=== PATIENT | male | born 1980 | race Caucasian/White ===

== ENCOUNTER 2018-01-26 16:08 | Emergency (ER) | payer SELFPAY ==
[~2018-01-26] VITALS: Ht 175.3 cm; Wt 70.0 kg
[~2018-01-26 16:08] MED LIST: ALBU6.7H INH; HYDR-3580 PO; IBUP800T23 PO; PRED20 PO; Z.0.NO CURRENT MEDS; ZITH250T PO
[2018-01-26 17:03] VITALS: BP 152/79; PULSE 72; RESP 20; TEMP 98; O2SAT 99
--- NOTE | 2018-01-26 18:51 | PD ---
HPI Chief Complaint: Injury Time Seen by Provider: 18:17 Travel History International Travel<30 days: No Contact w/Intl Traveler<30days: No Traveled to known affect area: No History of Present Illness HPI 37-year-old male presents to the emergency room for evaluation of bilateral wrist pain for the past 4 days. 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 States it has progressively gotten worse. Pain is constant, worse with any range of motion. It is localized to bilateral dorsal forearms, right worse than left. No radiation. He has been taking [id number] medications without relief in symptoms. He has also been applying ice. He denies any paresthesias or loss of range of motion. Denies any chronic medical conditions or daily medications. States his urine has been normal in color. PFSH Past Medical History Diminished Hearing: No Gastrointestinal Disorders: Yes (HISTORY OF ESOPHAGEAL AND GASTRIC ULCERS) GERD: Yes Kidney Stones: Yes Ulcer: Yes Past Surgical History Genitourinary Surgery: Yes (CYSTOSCOPES FOR KIDNEY STONES X 2) Social History Alcohol Use: No (DENIES) Tobacco Use: Yes (1/2-1 PPD) Substance Use: No Allergies-Medications (Allergen,Severity, Reaction): Coded Allergies: povidone-iodine (Unverified Allergy, Severe, CHEMICAL NAVARRO FROM ANY TOPICAL BETADINE-IODINE, 01/26/18) soap (Verified Allergy, Severe, navarro, 01/26/18) Reported Meds & Prescriptions Reported Meds & Active Scripts Active Review of Systems Except as stated in HPI: all other systems reviewed are Neg Physical Exam Narrative GENERAL: Well-nourished, well-developed male in no acute distress. Afebrile. Ambulatory. SKIN: Focused skin assessment warm/dry. HEAD: Normocephalic. EYES: No scleral icterus. No injection or drainage. NECK: Supple, trachea midline. No JVD or lymphadenopathy. CARDIOVASCULAR: Regular rate and rhythm without murmurs, gallops, or rubs. RESPIRATORY: Breath sounds equal bilaterally. No accessory muscle use. MUSCULOSKELETAL: No cyanosis. 2+ radial pulses are equal bilaterally. Radial, ulnar, and median nerves are intact bilaterally. Patient has full range of motion of bilateral upper extremities. Strength 5/5 and intact bilaterally. He does have tenderness to palpation of the bilateral, lateral, dorsal wrists. There is mild crepitus under the skin without wound. Data Data Last Documented VS Vital Signs Date Time Temp Pulse Resp B/P (MAP) Pulse Ox O2 Delivery O2 Flow Rate FiO2 01/26/18 17:03 98.0 72 20 152/79 (103) 99 Orders Orders Splint Or Brace Apply/Monitor (01/26/18 18:23) Splint Or Brace Apply/Monitor (01/26/18 18:23) Cockup Hand Splint (01/26/18 ) Cockup Hand Splint (01/26/18 ) MDM Medical Decision Making Medical Screen Exam Complete: Yes Emergency Medical Condition: Yes Medical Record Reviewed: Yes Differential Diagnosis Rhabdomyolysis, tendinitis, muscle spasm, muscle strain Narrative Course 37-year-old male presents to the emergency room for evaluation of bilateral pain for the past 4 days. Symptoms started after lifting 100 cinderblocks. Denies any dark urine. Physical exam reveals 2+ radial pulses are equal bilaterally. Radial, ulnar, and median nerves are intact bilaterally. Patient has full range of motion of bilateral upper extremities. Strength 5/5 and intact bilaterally. He does have tenderness to palpation of the bilateral, lateral, dorsal wrists. There is mild crepitus under the skin without wound. Patient was offered lab for rhabdomyolysis but declined stating that he feels like it is just muscle strain. He was reassured and told to drink plenty of fluids. Placed in bilateral wrist splints to allow for resting. Told to follow -up with primary care physician or return for worsening symptoms. He understands and agrees to plan. Diagnosis Primary Impression: Bilateral wrist pain Referrals: Primary Care Physician Additional Instructions: Rest and drink plenty of fluids. Splints as needed for pain. Take ibuprofen with food as directed, as needed for pain. Apply ice to the affected area for 20 minutes at a time, as needed for pain and swelling. Follow-up with a primary care physician. Return to the emergency room for worsening symptoms. Disposition: 01 DISCHARGE HOME Condition: Stable Saima Castaneda Jan 26, 2018 18:51
== END 2018-01-26 19:05 | disposition home or self-care (01) ==
LOC: NEPK 16:08
DX: M25.531 Pain in right wrist (principal); M25.532 Pain in left wrist; F17.200 Nicotine dependence, unspecified, uncomplicated
CPT/HCPCS: 99282; L3908

== ENCOUNTER 2018-03-28 15:15 | Observation (INO) ==
[2018-03-28] MEDS ORDERED: Sod Chloride 0.9% Inj 1,000 ML IV.SIG ONE ×2 (15:33)
[2018-03-28 16:02] LABS: Baso # (Auto) 0.1 th/mm3 (0.0-0.2); Baso % (Auto) 1.2 % (0.0-2.0); Eos # (Auto) 0.2 th/mm3 (0.0-0.4); Eos % (Auto) 2.9 % (0.0-4.0); Hematocrit 39.8 % (39.0-51.0); Hemoglobin 13.6 gm/dL (13.0-17.0); Lymph # (Auto) 2.5 th/mm3 (1.0-4.8); Lymph % (Auto) 33.8 % (9.0-44.0); Mean Corpuscular HGB Conc 34.1 % (32.0-36.0); Mean Corpuscular Hemoglobin 33.7 pg (27.0-34.0); Mean Corpuscular Volume 98.7 fL (80.0-100.0); Mono # (Auto) 0.8 th/mm3 (0.0-0.9); Mono % (Auto) 10.6 % (0.0-8.0); Neut # (Auto) 3.8 th/mm3 (1.8-7.7); Neut % (Auto) 51.5 % (16.0-70.0); Platelet Count 254 th/mm3 (150-450); Red Blood Count 4.03 mil/mm3 (4.50-5.90); Red Cell Distribution Width 12.9 % (11.6-17.2); White Blood Count 7.5 th/mm3 (4.0-11.0)
[2018-03-28 16:09] VITALS: BP 135/87; PULSE 57; RESP 18; TEMP 97.8
--- NOTE | 2018-03-28 16:17 | CT ---
EXAM DATE: 03/28/2018 4:03 PM EDT AGE/SEX: 37 years / Male INDICATIONS: Syncope today. CLINICAL DATA: This is the patient's initial encounter. Patient reports that signs and symptoms have been present for 1 day and indicates a pain score of 0/10. MEDICAL/SURGICAL HISTORY: Gastroesophageal reflux disease. None. RADIATION DOSE: 34.87 CTDI (mGy) COMPARISON: No prior exams available for comparison. TECHNIQUE: CT of the head without contrast. Using automated exposure control and adjustment of the mA and/or kV according to patient size, radiation dose was kept as low as reasonably achievable to ob tain optimal diagnostic quality images. DICOM format image data is available electronically for revi ew and comparison. FINDINGS: Cerebrum: The ventricles are normal for age. No evidence of midline shift, mass lesion, hemorrhage or acute infarction. No extraaxial fluid collections are seen. Posterior Fossa: The cerebellum and brainstem are intact. The 4th ventricle is midline. The cerebe llopontine angle is unremarkable. Extracranial: The visualized portion of the orbits is intact. Skull: The calvaria is intact. No evidence of skull fracture. CONCLUSION: 1. No acute intracranial abnormality. . Electronically signed by: Priyank Pak MD 03/28/2018 4:15 PM EDT
--- NOTE | 2018-03-28 16:24 | XR ---
EXAM DATE: 03/28/2018 4:14 PM EDT AGE/SEX: 37 years / Male INDICATIONS: Chest pain. CLINICAL DATA: This is the patient's initial encounter. Patient reports that signs and symptoms have been present for 1 day and indicates a pain score of 2/10. MEDICAL/SURGICAL HISTORY: None. None. COMPARISON: [facility], CHEST PA & LAT, 09/03/2012. . FINDINGS: A single AP view of the chest demonstrates the lungs to be symmetrically aerated without evidence of mass, infiltrate or effusion. The cardiomediastinal contours are unremarkable. Osseous structures a re intact. CONCLUSION: No active disease. Electronically signed by: Priyank Pak MD 03/28/2018 4:23 PM EDT
--- NOTE | 2018-03-28 16:30 | ED ---
HPI General Chief Complaint: Syncope Stated Complaint: medical Time Seen by Provider: 03/28/18 15:21 Source: patient Mode of arrival: EMS Limitations: no limitations History of Present Illness HPI narrative: 37-year-old male was witnessed to have syncopized by passersby. 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 Evidently the patient lost consciousness for 1 minute. He has no history of seizures. He has no past medical history. The patient smokes tobacco. He drinks occasionally. He denies any excessive alcohol consumption yesterday. No drug abuse. No similar prior episode. EMS reports the patient struggled with answering questions. Repetitive questioning noted in route to the ED. MD complaint: loss of consciousness and collapsed Duration of episode: 1 -: minutes(s) Description of event: post-event confusion Prodromal symptoms: none Witnessed: yes - by bystander Context: during exertion Injuries sustained associated with event: none Current symptoms: weakness Treatments prior to arrival: none Related Data Home Medications Medication Instructions Recorded Confirmed No Known Home Medications 03/28/18 03/28/18 Allergies Allergy/AdvReac Type Severity Reaction Status Date / Time povidone-iodine Allergy Severe CHEMICAL Unverified 01/26/18 17:06 NAVARRO FROM ANY TOPICAL BETADINE-IODINE Review of Systems ROS Unobtainable unobtainable due to mental status PMFSH Medical History Medical History GERD (gastroesophageal reflux disease) (Acute) Gastric ulcer (Acute) Kidney calculi (Acute) Family History Family History Other Family history non-contributory Social History Social History Substance History: Active Abuse Second Hand Smoke Exposure: Yes Smoking Status: Current every day smoker Tobacco Type: Cigarettes How Often Do You Have a Drink Containing Alcohol: 2 to 4 times a month Recent Travel in [facility] within the Last 8 Weeks: No Recent Out of Country Travel within the Last 8 Weeks: No Substance Abuse Detail Marijuana: Substance Use Status: Active Route Used Substance Abuse: Inhalation Last Used: on occasion Reason for Use: Feels Good Immunization History Tetanus Immunization: Unsure Hx Influenza Vaccine This Season: No Exam Narrative Exam Narrative: GENERAL: 37 yo M, WNWD, AOx3 SKIN: Focused skin assessment warm/dry. HEAD: Atraumatic. Normocephalic. EYES: Pupils equal and round. No scleral icterus. No injection or drainage. ENT: No nasal bleeding or discharge. Mucous membranes pink and moist. NECK: Trachea midline. No JVD. CARDIOVASCULAR: Regular rate and rhythm. No murmur appreciated. RESPIRATORY: No accessory muscle use. Clear to auscultation. Breath sounds equal bilaterally. GASTROINTESTINAL: Abdomen soft, non-tender, nondistended. Hepatic and splenic margins not palpable. MUSCULOSKELETAL: No obvious deformities. No clubbing. No cyanosis. No edema. NEUROLOGICAL: Patient is a and O 3. The cranial nerves III through XII are normal. Motor function is normal times all 4 extremities. The patient repeats the same questions. Patient repeats the same statement: "I don't know what happened. I think it was heat stroke." PSYCHIATRIC: Appropriate mood and affect; insight and judgment normal. Course Initial Documented Vital Signs Temperature 97.8 F 03/28/18 15:21 Pulse Rate 62 03/28/18 15:21 Respiratory Rate 18 03/28/18 15:21 Blood Pressure 135/87 03/28/18 15:21 Pulse Oximetry 98 03/28/18 15:21 Last Documented Vital Signs Temperature 97.8 F 03/28/18 15:26 Pulse Rate 57 L 03/28/18 15:26 Respiratory Rate 18 03/28/18 15:26 Blood Pressure 135/87 03/28/18 15:26 Pulse Oximetry 100 03/28/18 15:26 Medical Decision Making MDM Narrative Medical decision making narrative: Patient had a syncope event. Altered mental status ensued of unknown etiology potentially related to closed head injury. Patient reassessed at 4:40 PM. Mental status improved with no more repetitive questioning. The patient has had runs of bradycardia into the low 40s. The setting of a relative cardiac abnormality, bradycardia, with syncope and head injury admission is considered necessary. d/w Dr Ivan. 2L NS given here along with 40 meq potassium. Lab Data Lab results reviewed: Yes I reviewed the patient's lab results. Result diagrams: 03/28/18 15:47 03/28/18 15:47 Lab Results 03/28/18 03/28/18 Range/Units 15:47 15:47 WBC 7.5 (4.0-11.0) th/mm3 RBC 4.03 L (4.50-5.90) mil/mm3 Hgb 13.6 (13.0-17.0) gm/dL Hct 39.8 (39.0-51.0) % MCV 98.7 (80.0-100.0) fL MCH 33.7 (27.0-34.0) pg MCHC 34.1 (32.0-36.0) % RDW 12.9 (11.6-17.2) % Plt Count 254 (150-450) th/mm3 MPV 8.0 (7.0-11.0) fL Neut % (Auto) 51.5 (16.0-70.0) % Lymph % (Auto) 33.8 (9.0-44.0) % [place] % (Auto) 10.6 H (0.0-8.0) % Eos % (Auto) 2.9 (0.0-4.0) % Baso % (Auto) 1.2 (0.0-2.0) % Neut # (Auto) 3.8 (1.8-7.7) th/mm3 Lymph # (Auto) 2.5 (1.0-4.8) th/mm3 [place] # (Auto) 0.8 (0.0-0.9) th/mm3 Eos # (Auto) 0.2 (0.0-0.4) th/mm3 Baso # (Auto) 0.1 (0.0-0.2) th/mm3 WBC Differential . Differential Comment Auto diff final Sodium 143 (136-145) meq/L Potassium 3.0 L (3.5-5.1) meq/L Chloride 110 H (98-107) meq/L Carbon Dioxide 25.8 (21.0-32.0) meq/L Anion Gap 7 (5-15) meq/L BUN 10 (7-18) mg/dL Creatinine 0.89 (0.60-1.30) mg/dL Estimated GFR Greater than 89 (>89) mL/min Random Glucose 89 (74-106) mg/dL Calcium 8.3 L (8.5-10.1) mg/dL Magnesium 2.1 (1.5-2.5) mg/dL Lactate Dehydrogenase 157 (87-241) U/L Troponin I Less than 0.02 L (0.02-0.05) ng/mL Serum Alcohol Less than 3 (0-5) mg/dL Imaging Data Radiologist's impression: Chest X-Ray 03/28/18 15:33 CONCLUSION: No active disease. Head CT 03/28/18 15:33 CONCLUSION: 1. No acute intracranial abnormality. . ECG Data EKG Prior to Arrival: Yes Attestation: I personally reviewed and interpreted this ECG as follows: Interpretation: Sinus, rate 52, normal axis and intervals, no preexcitation morphology Discharge Plan Discharge Disposition Patient Disposition: 30 Still Patient Physicians Team ED Provider: Donavan Viveros Primary Care Provider: UNKNOWN, Attending Provider: Niles Ivan Status ED Status: Admitted Observation Patient
[2018-03-28 16:31] LABS: Anion Gap 7 meq/L (5-15); Blood Urea Nitrogen 10 mg/dL (7-18); Calcium 8.3 mg/dL (8.5-10.1); Carbon Dioxide 25.8 meq/L (21.0-32.0); Chloride 110 meq/L (98-107); Glomerular Filtration Rate Greater Than 89 mL/min (>89); Glucose,Random 89 mg/dL (74-106); Magnesium 2.1 mg/dL (1.5-2.5); Sodium 143 meq/L (136-145)
[2018-03-28 16:35] LABS: Lactate Dehydrogenase 157 U/L (87-241)
[2018-03-28] MEDS ORDERED: Bisacodyl 10 MG Supp RECTAL PRN (17:07)
[2018-03-28] MEDS ORDERED: Temazepam 15 MG Capsule PO PRN (17:07)
[2018-03-28] MEDS ORDERED: Acetaminophen 325 MG Tablet PO PRN (17:07)
[2018-03-28] MEDS ORDERED: Potassium Chloride Inj 20 MEQ in Sod Chloride 0.9% Inj 1,000 ML IV.CONT SCH (17:15)
[2018-03-28] MEDS ORDERED: Aluminum/Magnesium/Simethacone Susp 30 ML UDC PO PRN (17:36)
--- NOTE | 2018-03-28 17:49 | P.HP ---
History of Present Illness Primary Care Physician: UNKNOWN History of Present Illness: This is a 37-year-old male with a history of gastric ulcer. FH no sz. He was brought in because of syncope. 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 He passed out for a minute. When he woke up, he was struggling answering questions per EMS. On the way to the emergency room, he had repetitive questioning. No seizure activity, tongue biting and incontinence. Patient remembers having abdominal pain prior to passing out. States he was out under the sun for at least 2 hours. [place] he was dehydrated though he was drinking fluids but did not have anything to eat. In the emergency department, he received 2 L of fluid and 40 M EQ potassium for a potassium of 3. He was not hypoglycemic. Plan was to discharge the patient but was noted to be bradycardic in the 40s EKG tracing interpreted by me showing sinus bradycardia heart rate of 57. Patient has history of slow heart rate in the 60s. ER physician recommended observation because of syncope with bradycardia. All other systems reviewed negative Review of Systems All other systems reviewed negative except as stated in HPI PMFSH - History History Provided By: Patient - Medical History Medical History: Medical History (Last Updated 03/28/18 @ 17:42 by Niles Ivan MD) GERD (gastroesophageal reflux disease) Gastric ulcer Kidney calculi - Family History Family History: Family History (Last Updated 03/28/18 @ 17:43 by Niles Ivan MD) Other Family history non-contributory - Tobacco History Second Hand Smoke Exposure: Yes Tobacco Use In Past 30 Days: Yes Smoking Status: Current every day smoker Tobacco Type: Cigarettes - Alcohol History How Often Do You Have a Drink Containing Alcohol: 2 to 4 times a month - Substance Use History Substance History: Active Abuse - Substance Use Type Marijuana Status: Active Route Used: Inhalation Last Used: on occasion Reason for Use: Feels Good - Travel History Recent Travel in the [place] Within the Last 8 Weeks: No Recent Travel Out of the Country Within the Last 8 Weeks: No - Immunization History Tetanus Immunization: Unsure Hx Influenza Vaccine This Season: No Medications and Allergies Active Medications: Active Medications Acetaminophen (Tylenol) 650 mg PO Q4H PRN PRN Reason: Temp > 100.4 Al Hydrox/Mg Hydrox/Simethicone (Mag-Al Plus Susp Liq) 30 ml PO Q6H PRN PRN Reason: DYSPEPSIA OR HEARTBURN Al Hydroxide/Mg Hydroxide (Milk Of Magnesia Liq) 30 ml PO Q12H PRN PRN Reason: Mild Constipation Bisacodyl (Dulcolax Supp) 10 mg RECTAL DAILY PRN PRN Reason: SEVERE CONSITIPATION Famotidine (Pepcid) 20 mg PO BID KEITH Potassium Chloride 20 meq/ (Sodium Chloride) 1,010 mls @ 100 mls/hr IV.CONT .Q10H6M KEITH Lactulose (Lactulose Liq) 30 ml PO DAILY PRN PRN Reason: SEVERE CONSITIPATION Ondansetron HCl (Zofran Inj) 4 mg IV.PUSH Q6H PRN PRN Reason: NAUSEA OR VOMITING Senna/Docusate Sodium (Divya-Colace) 1 tab PO BID KEITH Sennosides (Senokot) 17.2 mg PO Q12H PRN PRN Reason: Moderate Constipation Allergies Allergy/AdvReac Type Severity Reaction Status Date / Time povidone-iodine Allergy Severe CHEMICAL Unverified 01/26/18 17:06 NAVARRO FROM ANY TOPICAL BETADINE-IODINE Home Medications Medication Instructions Recorded Confirmed Type No Known Home Medications 03/28/18 03/28/18 History Exam Vital signs: Vital Signs 03/28/18 15:21 03/28/18 15:26 Temperature 97.8 F 97.8 F Pulse Rate 62 57 L Respiratory Rate 18 18 Blood Pressure 135/87 135/87 Pulse Oximetry 98 100 Intake & Output 03/27/18 03/28/18 03/28/18 18:59 06:59 18:59 Weight 68.039 kg Narrative: GENERAL: Well-developed and well-nourished in no distress SKIN: Warm and dry. HEAD: Tender occiput. Normocephalic. EYES: Pupils equal and round. No scleral icterus. No injection or drainage. ENT: No nasal bleeding or discharge. Mucous membranes dry NECK: Trachea midline. No JVD. CARDIOVASCULAR: Regular rate and rhythm. RESPIRATORY: No accessory muscle use. Clear to auscultation. Breath sounds equal bilaterally. GASTROINTESTINAL: Abdomen soft, non-tender, nondistended. MUSCULOSKELETAL: Extremities without clubbing, cyanosis, or edema. No obvious deformities. NEUROLOGICAL: Awake and alert. No obvious cranial nerve deficits. Motor grossly within normal limits. Five out of 5 muscle strength in the arms and legs. Normal speech. PSYCHIATRIC: Appropriate mood and affect; insight and judgment normal. Results - Labs CBC & Chem 7: 03/28/18 15:47 03/28/18 15:47 Labs: Laboratory Results - last 24 hr 03/28/18 03/28/18 15:47 15:47 WBC 7.5 RBC 4.03 L Hgb 13.6 Hct 39.8 MCV 98.7 MCH 33.7 MCHC 34.1 RDW 12.9 Plt Count 254 MPV 8.0 Neut % (Auto) 51.5 Lymph % (Auto) 33.8 [place] % (Auto) 10.6 H Eos % (Auto) 2.9 Baso % (Auto) 1.2 Neut # (Auto) 3.8 Lymph # (Auto) 2.5 [place] # (Auto) 0.8 Eos # (Auto) 0.2 Baso # (Auto) 0.1 WBC Differential . Differential Comment Auto diff final Sodium 143 Potassium 3.0 L Chloride 110 H Carbon Dioxide 25.8 Anion Gap 7 BUN 10 Creatinine 0.89 Estimated GFR Greater than 89 Random Glucose 89 Calcium 8.3 L Magnesium 2.1 Lactate Dehydrogenase 157 Troponin I Less than 0.02 L Serum Alcohol Less than 3 - Imaging Impressions Chest X-Ray 03/28/18 15:33 CONCLUSION: No active disease. Head CT 03/28/18 15:33 CONCLUSION: 1. No acute intracranial abnormality. . Caprini VTE Risk Assessment Caprini VTE Risk Assessment: No/Low Risk (score <= 1) Caprini Risk Assessment Model: Point Value = 1 Point Value = 2 Point Value = 3 Point Value = 5 Age 41-60 Minor surgery BMI > 25 kg/m2 Swollen legs Varicose veins or History of unexplained or recurrent spontaneous Oral contraceptives or hormone replacement Sepsis (< 1 month) Serious lung disease, including pneumonia (< 1 month) Abnormal pulmonary function Acute myocardial infarction Congestive heart failure (< 1 month) History of inflammatory bowel disease Medical patient at bed rest Age 61-74 Arthroscopic surgery Major open surgery (> 45 min) Laparoscopic surgery (> 45 min) Malignancy Confined to bed (> 72 hours) Immobilizing plaster cast Central venous access Age >= 75 History of VTE Family history of VTE Factor V Leiden Prothrombin [id number] Lupus anticoagulant Anticardiolipin antibodies Elevated serum homocysteine Heparin-induced thrombocytopenia Other congenital or acquired thrombophilia Stroke (< 1 month) Elective arthroplasty Hip, pelvis, or leg fracture Acute spinal cord injury (< 1 month) Prophylaxis Regimen: Total Risk Factor Score Risk Level Prophylaxis Regimen 0-1 Low Early ambulation 2 Moderate Order ONE of the following: *Sequential Compression Device (SCD) *Heparin 5000 units SQ BID 3-4 Higher Order ONE of the following medications: *Heparin 5000 units SQ TID *Enoxaparin/Lovenox 40 mg SQ daily (WT < 150 kg, CrCl > 30 mL/min) *Enoxaparin/Lovenox 30 mg SQ daily (WT < 150 kg, CrCl > 10-29 mL/min) *Enoxaparin/Lovenox 30 mg SQ BID (WT < 150 kg, CrCl > 30 mL/min) AND/OR *Sequential Compression Device (SCD) 5 or more Highest Order ONE of the following medications: *Heparin 5000 units SQ TID (Preferred with Epidurals) *Enoxaparin/Lovenox 40 mg SQ daily (WT < 150 kg, CrCl > 30 mL/min) *Enoxaparin/Lovenox 30 mg SQ daily (WT < 150 kg, CrCl > 10-29 mL/min) *Enoxaparin/Lovenox 30 mg SQ BID (WT < 150 kg, CrCl > 30 mL/min) AND *Sequential Compression Device (SCD) Assessment and Plan - Plan This is a 37-year-old male with a history of gastric ulcer. He was brought in because of syncope. 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 He passed out for a minute. When he woke up, he was struggling answering questions per EMS. On the way to the emergency room, he had repetitive questioning. No seizure activity, tongue biting and incontinence. Patient remembers having abdominal pain prior to passing out. States he was out under the sun for at least 2 hours. [place] he was dehydrated though he was drinking fluids but did not have anything to eat. In the emergency department, was noted to be bradycardic in the 40s EKG showing sinus bradycardia heart rate of 57. Patient has history of slow heart rate in the 60s. Syncope likely secondary to heat stroke versus vasovagal. Patient also has sinus bradycardia. At this time, he is neurovascularly intact. Will hospitalize for further evaluation. Monitor on telemetry with serial EKG. Continue IV hydration and obtain orthostatic vital signs. Neuro checks seizure precautions. Follow-up urine drug screen Hypokalemia. Patient received 40 mg potassium supplementation. Repeat BMP and magnesium in the morning Abdominal pain prior to syncope. History of gastric ulcer. Start Pepcid with antacids. Check lipase. Trend cardiac enzymes Low risk for DVT Discharge Planning: home in am [employer] bur[employer]
--- NOTE | 2018-03-28 18:58 | P.AMA ---
AMA Note - AMA Note AMA Statement: Patient Jonatan Schilling has decided to leave the hospital against medical advice. This patient has the capacity to refuse care and understands the risks of leaving, including permanent disability and/or , and has had an opportunity to ask questions about his/her condition. The patient has been informed that he/she may return for care at any time, and follow up has been arranged/advised. - AMA Note Discharge Disposition: Left Against Medical Advice
[2018-03-28] MEDS ORDERED: Famotidine 20 MG Tablet PO SCH (21:00)
[2018-03-28] MEDS ORDERED: Senna/Docusate Sodium 8.6/50 MG Tablet PO SCH (21:00)
[2018-03-28 21:56] LABS: Lipase 421 U/L (73-393)
[2018-03-28 21:59] LABS: Creatine Kinase 125 U/L (39-308)
--- NOTE | 2018-03-29 08:56 | ECG ---
Date Performed: 03/28/2018 Time Performed: 15:27:03 PTAGE: 37 years EKG: SINUS BRADYCARDIA NONSPECIFIC T-WAVE ABNORMALITY BORDERLINE ECG NO PREVIOUS TRACING DOCTOR: Maryana Schafer Interpretating Date/Time 03/29/2018 08:54:00
[2018-03-30 11:22] VITALS: O2SAT 99
== END 2018-03-28 18:49 | disposition left against medical advice (07) ==
LOC: NEDA 15:15 → NEPE 15:15 → NEDA 19:48
PROVIDERS: ADMIT Internal Medicine; ATTEND Internal Medicine